=== PATIENT | male | born 1965 | race Caucasian/White ===

== ENCOUNTER 2023-10-03 12:42 | Emergency (ER) | payer BC ==
[2023-10-03 13:26] LABS: BASOPHILS PERCENT AUTO 0.5 % (0.0-1.0); EOSINOPHILS PERCENT AUTO 1.2 % (1.0-3.0); HEMATOCRIT 41.9 % (40.0-54.0); HEMOGLOBIN 13.9 g/dL (14.0-18.0); LYMPHOCYTES PERCENT AUTO 47.6 % (20.5-50.1); MEAN CORPUSCULAR HGB CONC 33.2 g/dL (33.0-35.0); MEAN CORPUSCULAR VOLUME 93.3 fL (80-100); NEUTROPHILS PERCENT AUTO 39.7 % (42.2-75.2); PLATELET COUNT,PLT 210 10^3/uL (150-450); RED BLOOD CELL COUNT 4.49 10^6/uL (4.6-6.2); WHITE BLOOD CELL COUNT,WBC 4.2 10^3/uL (5.0-10.0)
[2023-10-03 13:50] LABS: A/G RATIO 1.2; ALANINE AMINOTRANSFERASE,ALT 46 U/L (16-63); ALBUMIN 3.8 g/dL (3.4-5.0); ALKALINE PHOSPHATASE 33 U/L (46-116); ANION GAP 10.3 mEq/L (7-13); ASPARTATE AMNIOTRANSFERASE,AST 21 U/L (15-37); BILIRUBIN TOTAL 0.3 mg/dL (0.2-1.0); BLOOD UREA NITROGEN,BUN 19 mg/dL (7-18); BUN/CREATININE RATIO 16.2 (No establ ref range); CARBON DIOXIDE,CO2 30 mmol/L (21-32); CHLORIDE,CL 105 mmol/L (98-107); CREATININE 1.17 mg/dL (0.70-1.30); EST CRCL DRUG DOSING (CG) 67.98 mL/min; ESTIMATED GFR 72 mL/min (>=60); GLUCOSE RANDOM 171 mg/dL (70-99); POTASSIUM,K 4.3 mmol/L (3.5-5.1); PROTEIN TOTAL,TP 7.1 g/dL (6.4-8.2); SODIUM,NA 141 mmol/L (136-145)
[2023-10-03] MEDS: Doxycycline Monohydrate 100 MG Cap PO ONE (13:50)
[2023-10-03] MEDS: Take Home: Doxycycline 100 MG Cap, 4 Cap Pack PO ONE (13:51)
[2023-10-03] MEDS: Take Home: Cephalexin 500 MG Cap, 6 Cap Pack PO ONE (13:51)
[2023-10-03] MEDS: Cephalexin 500 MG Cap PO ONE (13:51)
[2023-10-03 13:55] LABS: LACTIC ACID 0.9 mmol/L (0.4-2.0)
== END 2023-10-03 14:07 | disposition home or self-care (01) ==
LOC: DL.ED 12:42
DX: T81.40XA Infection following a procedure, unspecified, initial encounter (principal); L03.116 Cellulitis of left lower limb
CPT/HCPCS: 36415; 80053; 83605; 84145; 85025; 86140; 87040; 99283; A9270